=== PATIENT | male | born 1955 | race African-American/Black ===

== ENCOUNTER 2017-07-06 18:32 | Emergency (ER) | payer MEDICARE, MEDICAID ==
[~2017-07-06] VITALS: Ht 182.9 cm; Wt 137.0 kg
[~2017-07-06 18:32] MED LIST: ASPI-864 PO; ATOR20TA65 PO; GLIP10TA10 PO; LOSA100T14 PO; METF500T4 PO; NIFE60TA64 PO
[2017-07-06] MEDS ORDERED: LIDOCAINE HCL 1% 20ML VIAL (Pyxis) INJ INFIL ONE (23:30)
[2017-07-06] MEDS ORDERED: IBUPROFEN 400MG TABLET PO ONE (23:30)
[2017-07-06 23:45] VITALS: BP 117/77
== END 2017-07-07 00:23 | disposition home or self-care (01) ==
LOC: ER 18:32
DX: L02.512 Cutaneous abscess of left hand (principal); I12.9 Hypertensive chronic kidney disease with stage 1 through stage 4 chronic kidney disease, or unspecified chronic kidney disease; E11.22 Type 2 diabetes mellitus with diabetic chronic kidney disease; N18.6 End stage renal disease; F17.200 Nicotine dependence, unspecified, uncomplicated; Z99.2 Dependence on renal dialysis; Z88.0 Allergy status to penicillin; Z79.82 Long term (current) use of aspirin; Z79.84 Long term (current) use of oral hypoglycemic drugs
CPT/HCPCS: 26010; 99283; J3490

== ENCOUNTER → 2018-01-11 | Outpatient (CLI) | payer MEDICARE, MEDICAID ==
[~2018-01-11] MED LIST changes: -METF500T4 PO; +METF500T6 PO
== END | disposition home or self-care (01) ==
LOC: PVL 12:30
DX: I77.1 Stricture of artery (principal); I73.9 Peripheral vascular disease, unspecified; E11.9 Type 2 diabetes mellitus without complications
CPT/HCPCS: 93923

== ENCOUNTER 2019-07-26 04:48 | Inpatient (IN) | payer MEDICARE, MEDICAID ==
[2019-07-26] VITALS (48 sets, daily range): BP systolic 92–149; BP diastolic 41–83
[~2019-07-26] VITALS: Ht 182.9 cm; Wt 91.7 kg
[~2019-07-26 04:48] MED LIST changes: -LOSA100T14 PO; +LOSA100T32 PO; +METF-414 PO; -METF500T6 PO
[2019-07-26] MEDS ORDERED: DEXTROSE 50% WATER 50ML SYRINGE IV ONE ×3 (05:10→07:00)
[2019-07-26 06:36] LABS: HEMATOCRIT. 30.3 % (42.0-52.0); HEMOGLOBIN. 9.3 g/dL (14.0-18.0); MEAN CORPUSCULAR HEMOGLOBIN 25.1 pg (28.0-32.0); MEAN CORPUSCULAR VOLUME 82.2 fL (80.0-94.0); MEAN PLATELET VOLUME 7.4 fl (7.4-10.4); PLATELET 167 x1000/uL (130-400); RED BLOOD CELL COUNT 3.69 mill/uL (4.7-6.1); RED CELL DISTRIBUTION WIDTH 22.6 % (11.6-14.6)
[2019-07-26 06:42] LABS: CHLORIDE 96 mEq/L (98-107)
[2019-07-26 06:47] LABS: PHOSPHORUS 6.5 mg/dL (2.5-4.9)
[2019-07-26] MEDS ORDERED: SODIUM POLYSTYRENE SULFONATE 15 G/60 ML BOT PO ONE (07:00)
[2019-07-26] MEDS ORDERED: SODIUM BICARBONATE 8.4% 1 MEQ/ML 50ML SYR IV ONE (07:00)
[2019-07-26] MEDS ORDERED: ALBUTEROL (0.083%) 2.5MG/3ML NEB HHN ONE (07:00)
[2019-07-26] MEDS ORDERED: CALCIUM GLUCONATE 100MG/ML 10ML VIAL IV ONE (07:00)
[2019-07-26 07:03] LABS: NUCLEATED RED BLOOD CELLS 2 /100 WBC
[2019-07-26 07:04] LABS: PLATELET ESTIMATE NORMAL
[2019-07-26] MEDS ORDERED: ASPIRIN 325MG EC TABLET PO ONE (08:15)
[2019-07-26] MEDS ORDERED: ONDANSETRON HCL 4MG/2ML INJ IV ONE (08:45)
[2019-07-26] MEDS ORDERED: IPRATROPIUM/ALBUTEROL 0.5-3(2.5)MG/3ML NEB NEB PRN (09:30)
[2019-07-26] MEDS ORDERED: GUAIFENESIN 200MG/10ML SUGAR FREE UDC PO PRN (09:30)
[2019-07-26] MEDS ORDERED: DEXTROSE 50% WATER 50ML SYRINGE IV PRN (09:30)
[2019-07-26] MEDS ORDERED: TRAMADOL 50MG TABLET PO PRN (09:30)
[2019-07-26] MEDS ORDERED: ACETAMINOPHEN 325MG TABLET PO PRN (09:30)
[2019-07-26] MEDS ORDERED: NITROGLYCERIN 0.4MG TABLET SL SL PRN (09:30)
[2019-07-26] MEDS ORDERED: DOCUSATE SODIUM 100MG CAPSULE PO PRN (09:30)
[2019-07-26] MEDS ORDERED: MAGNESIUM/ALUMINUM HYDROXIDE/SIMETHICONE 30ML UDC PO PRN (09:30)
[2019-07-26] MEDS ORDERED: MORPHINE SULFATE 2 MG/ML CPJ (NOT FOR IM USE) IV PRN (09:30)
[2019-07-26] MEDS: BLOOD SUGAR DIAGNOSTIC STRIP TEST SCH ×3 (11:46→21:24)
[2019-07-26] MEDS: ONDANSETRON HCL 4MG/2ML INJ IV PRN (11:46)
[2019-07-26] MEDS: SEVELAMER CARBONATE 800 MG TABLET PO SCH ×2 (12:00→17:00)
[2019-07-26] MEDS: ASPIRIN 325MG EC TABLET PO SCH (12:00)
[2019-07-26] MEDS: GUAIFENESIN/DM 600MG/30MG ER TAB 12HR PO SCH ×2 (12:00→21:30)
[2019-07-26] MEDS: INSULIN LISPRO 100 UNITS/ML SUBCUT SCH ×3 (12:00→21:00)
[2019-07-26] MEDS ORDERED: FAMOTIDINE 20MG TABLET PO SCH (12:00)
[2019-07-26] MEDS: ENOXAPARIN 100MG/ML SYR SUBCUT SCH (12:07)
[2019-07-26 12:59] LABS: INR 1.5; PROTHROMBIN TIME 16.6 sec (9.6-11.0)
[2019-07-26] MEDS ORDERED: LEVOFLOXACIN 500MG PREMIX 100 ML IV NR (13:00)
[2019-07-26 13:16] LABS: CREATINE KINASE MB FRACTION 16.6 ng/mL (0.5-3.6)
[2019-07-26] MEDS ORDERED: VANCOMYCIN 2,000 MG in DEXT 5% WATER 500 ML IV NR (13:30)
[2019-07-26] MEDS ORDERED: SODIUM CHLORIDE 0.9% 1,000 ML IV SCH (13:30)
[2019-07-26] MEDS ORDERED: SODIUM CHLORIDE 0.9% 1000ML BAG (SEPSIS BOLUS) IV ONE (14:00)
[2019-07-26 15:55] LABS: HEMATOCRIT 27.9 % (42.0-52.0); MEAN CORPUSCULAR HEMOGLOBIN 25.3 pg (28.0-32.0); MEAN CORPUSCULAR VOLUME 78.4 fL (80.0-94.0); PLATELET 134 x1000/uL (130-400); RED BLOOD CELL COUNT 3.56 mill/uL (4.7-6.1)
[2019-07-26] MEDS: DIPHENHYDRAMINE 50MG/ML VIAL IV PRN (17:37)
[2019-07-26] MEDS: METOPROLOL TARTRATE 25MG TABLET PO SCH (21:00)
[2019-07-26] MEDS: DEXT 5%/LACTATED RINGERS 1,000 ML IV SCH (21:31)
[2019-07-26 23:33] LABS: HEMATOCRIT 25.6 % (42.0-52.0); HEMOGLOBIN 8.3 g/dL (14.0-18.0); MEAN CORPUSCULAR HEMOGLOBIN 25.2 pg (28.0-32.0); MEAN CORPUSCULAR VOLUME 77.9 fL (80.0-94.0); PLATELET 112 x1000/uL (130-400); RED BLOOD CELL COUNT 3.28 mill/uL (4.7-6.1); RED CELL DISTRIBUTION WIDTH 21.9 % (11.6-14.6)
[2019-07-26 23:38] LABS: CREATINE KINASE MB FRACTION 10.6 ng/mL (0.5-3.6)
[2019-07-27] VITALS (26 sets, daily range): BP systolic 100–154; BP diastolic 46–86
[2019-07-27 05:36] LABS: HEMATOCRIT. 25.8 % (42.0-52.0); HEMOGLOBIN. 8.3 g/dL (14.0-18.0); MEAN CORPUSCULAR HEMOGLOBIN 25.2 pg (28.0-32.0); MEAN PLATELET VOLUME 7.7 fl (7.4-10.4); PLATELET 125 x1000/uL (130-400); RED BLOOD CELL COUNT 3.31 mill/uL (4.7-6.1); RED CELL DISTRIBUTION WIDTH 21.4 % (11.6-14.6)
[2019-07-27 06:13] LABS: CHLORIDE 100 mEq/L (98-107)
[2019-07-27] MEDS: BLOOD SUGAR DIAGNOSTIC STRIP TEST SCH ×4 (06:14→20:41)
[2019-07-27] MEDS: INSULIN LISPRO 100 UNITS/ML SUBCUT SCH ×4 (06:14→21:00)
[2019-07-27] MEDS: SEVELAMER CARBONATE 800 MG TABLET PO SCH ×3 (06:14→18:11)
[2019-07-27 06:19] LABS: PHOSPHORUS 3.9 mg/dL (2.5-4.9)
[2019-07-27] MEDS: DEXT 5%/LACTATED RINGERS 1,000 ML IV SCH ×2 (07:24→21:22)
[2019-07-27] MEDS: ENOXAPARIN 100MG/ML SYR SUBCUT SCH (09:00)
[2019-07-27] MEDS: ASPIRIN 325MG EC TABLET PO SCH (09:00)
[2019-07-27] MEDS: PANTOPRAZOLE SODIUM 40 MG/VIAL IV SCH (09:40)
[2019-07-27] MEDS: GUAIFENESIN/DM 600MG/30MG ER TAB 12HR PO SCH ×2 (09:40→21:23)
[2019-07-27] MEDS: METOPROLOL TARTRATE 25MG TABLET PO SCH ×2 (09:41→21:23)
[2019-07-27 10:59] LABS: NUCLEATED RED BLOOD CELLS 2 /100 WBC; PLATELET ESTIMATE NORMAL
[2019-07-27 15:45] LABS: HEMATOCRIT 28.3 % (42.0-52.0); MEAN CORPUSCULAR HEMOGLOBIN 25.1 pg (28.0-32.0); MEAN CORPUSCULAR VOLUME 78.7 fL (80.0-94.0); PLATELET 127 x1000/uL (130-400); RED BLOOD CELL COUNT 3.59 mill/uL (4.7-6.1); RED CELL DISTRIBUTION WIDTH 21.7 % (11.6-14.6)
[2019-07-27 16:19] LABS: TOTAL IRON BINDING CAPACITY 295 ug/dL (250-450)
[2019-07-27 16:38] LABS: FOLIC ACID (FOLATE) SERUM 4.4 ng/mL (>5.38)
[2019-07-27] MEDS: SUCRALFATE 1 G/10 ML UDC PO SCH ×2 (18:11→21:23)
[2019-07-27] MEDS: ZOLPIDEM TARTRATE 5MG TABLET PO PRN (22:29)
[2019-07-27 22:56] LABS: HEMATOCRIT 29.5 % (42.0-52.0); HEMOGLOBIN 9.4 g/dL (14.0-18.0); MEAN CORPUSCULAR HEMOGLOBIN 25.1 pg (28.0-32.0); MEAN CORPUSCULAR VOLUME 78.8 fL (80.0-94.0); PLATELET 126 x1000/uL (130-400); RED BLOOD CELL COUNT 3.74 mill/uL (4.7-6.1); RED CELL DISTRIBUTION WIDTH 22.1 % (11.6-14.6)
[2019-07-28] VITALS (21 sets, daily range): BP systolic 94–177; BP diastolic 57–110
[2019-07-28 05:33] LABS: BASOPHILS % 0.4 % (0.0-2.0); EOSINOPHILS % 0.6 % (0.0-5.0); HEMOGLOBIN. 8.9 g/dL (14.0-18.0); LYMPHOCYTES % 8.8 % (20.0-50.0); MEAN CORPUSCULAR HEMOGLOBIN 25.1 pg (28.0-32.0); MEAN CORPUSCULAR VOLUME 78.6 fL (80.0-94.0); MEAN PLATELET VOLUME 8.5 fl (7.4-10.4); NEUTROPHILS % 84.2 % (40.0-76.0); PLATELET 119 x1000/uL (130-400); RED BLOOD CELL COUNT 3.56 mill/uL (4.7-6.1)
[2019-07-28] MEDS: INSULIN LISPRO 100 UNITS/ML SUBCUT SCH ×4 (06:30→20:36)
[2019-07-28] MEDS: SUCRALFATE 1 G/10 ML UDC PO SCH ×4 (06:30→20:40)
[2019-07-28] MEDS: BLOOD SUGAR DIAGNOSTIC STRIP TEST SCH ×4 (06:30→20:36)
[2019-07-28] MEDS: SEVELAMER CARBONATE 800 MG TABLET PO SCH ×3 (06:31→16:20)
[2019-07-28 07:37] LABS: PLATELET ESTIMATE DECREASED
[2019-07-28] MEDS: GUAIFENESIN/DM 600MG/30MG ER TAB 12HR PO SCH ×2 (09:00→20:34)
[2019-07-28] MEDS ORDERED: ASPIRIN 325MG EC TABLET PO SCH (09:00)
[2019-07-28] MEDS: METOPROLOL TARTRATE 25MG TABLET PO SCH ×2 (09:00→20:35)
[2019-07-28] MEDS ORDERED: ASPIRIN 81MG EC TABLET PO SCH (09:00)
[2019-07-28] MEDS: PANTOPRAZOLE SODIUM 40 MG/VIAL IV SCH (09:20)
[2019-07-28] MEDS: DEXT 5%/LACTATED RINGERS 1,000 ML IV SCH ×3 (09:21→20:36)
[2019-07-28] MEDS: NICOTINE 21MG PATCH TD SCH (09:21)
[2019-07-28] MEDS ORDERED: VANCOMYCIN 750 MG PREMIX 150 ML IV SCH (12:00)
[2019-07-28] MEDS: LEVOFLOXACIN 250MG PREMIX 50 ML IV SCH (12:15)
[2019-07-28 17:48] LABS: HEMOGLOBIN 9.8 g/dL (14.0-18.0); MEAN CORPUSCULAR VOLUME 79.2 fL (80.0-94.0); PLATELET 125 x1000/uL (130-400); RED BLOOD CELL COUNT 3.92 mill/uL (4.7-6.1)
[2019-07-29] VITALS (13 sets, daily range): BP systolic 114–168; BP diastolic 57–96
[2019-07-29] MEDS: ZOLPIDEM TARTRATE 5MG TABLET PO PRN ×2 (01:27→23:22)
[2019-07-29] MEDS: SUCRALFATE 1 G/10 ML UDC PO SCH ×4 (07:30→20:17)
[2019-07-29] MEDS: SEVELAMER CARBONATE 800 MG TABLET PO SCH ×3 (08:00→18:05)
[2019-07-29] MEDS: INSULIN LISPRO 100 UNITS/ML SUBCUT SCH ×4 (08:00→20:18)
[2019-07-29] MEDS: BLOOD SUGAR DIAGNOSTIC STRIP TEST SCH ×4 (08:22→20:21)
[2019-07-29] MEDS: METOPROLOL TARTRATE 25MG TABLET PO SCH ×2 (08:23→20:17)
[2019-07-29] MEDS: GUAIFENESIN/DM 600MG/30MG ER TAB 12HR PO SCH ×2 (09:00→20:17)
[2019-07-29] MEDS ORDERED: BACTERIOSTATIC SODIUM CHLORIDE 0.9% 30ML VIAL IJ ONE (09:29)
[2019-07-29 09:52] LABS: HEMATOCRIT. 30.9 % (42.0-52.0); HEMOGLOBIN. 9.8 g/dL (14.0-18.0); MEAN CORPUSCULAR VOLUME 79.1 fL (80.0-94.0); RED CELL DISTRIBUTION WIDTH 21.8 % (11.6-14.6)
[2019-07-29] MEDS: PANTOPRAZOLE SODIUM 40 MG/VIAL IV SCH (09:54)
[2019-07-29] MEDS: NICOTINE 21MG PATCH TD SCH (09:54)
[2019-07-29] MEDS: DEXT 5%/0.9% NACL 1,000 ML IV SCH (09:54)
[2019-07-29 10:02] LABS: INR 1.2; PARTIAL THROMBOPLASTIN TIME 28.7 sec (23.4-31.0); PROTHROMBIN TIME 13.3 sec (9.6-11.0)
[2019-07-29 10:47] LABS: PLATELET 120 x1000/uL (130-400)
[2019-07-29 11:28] LABS: NUCLEATED RED BLOOD CELLS 5 /100 WBC; PLATELET ESTIMATE SLIGHTLY DECREASED
[2019-07-29 11:57] LABS: CHLORIDE 95 mEq/L (98-107)
[2019-07-29] MEDS ORDERED: HYDRALAZINE 20MG/ML VIAL IV PRN (14:55)
[2019-07-29 15:18] LABS: HEMATOCRIT 33.3 % (42.0-52.0); HEMOGLOBIN 10.4 g/dL (14.0-18.0); MEAN CORPUSCULAR HEMOGLOBIN 25.2 pg (28.0-32.0); MEAN CORPUSCULAR VOLUME 81.1 fL (80.0-94.0); PLATELET 121 x1000/uL (130-400); RED CELL DISTRIBUTION WIDTH 22.3 % (11.6-14.6)
[2019-07-29] MEDS ORDERED: MIDAZOLAM HCL 5 MG/5 ML VIAL ONE (15:43)
[2019-07-29] MEDS ORDERED: FENTANYL CITRATE/PF 50MCG/ML 2ML VIAL ONE (15:44)
[2019-07-29] MEDS ORDERED: MIDAZOLAM HCL 5 MG/5 ML VIAL IV PRN (16:10)
[2019-07-29] MEDS ORDERED: FENTANYL CITRATE/PF 50MCG/ML 2ML VIAL IV PRN (16:11)
[2019-07-29] MEDS ORDERED: EPOETIN ALFA 10000UNITS/ML VIAL SUBCUT SCH (21:00)
[2019-07-30] VITALS (10 sets, daily range): BP systolic 116–154; BP diastolic 56–88
[2019-07-30 01:24] LABS: HEMATOCRIT 31.2 % (42.0-52.0); MEAN CORPUSCULAR HEMOGLOBIN 25.7 pg (28.0-32.0); MEAN CORPUSCULAR VOLUME 79.9 fL (80.0-94.0); PLATELET 131 x1000/uL (130-400); RED CELL DISTRIBUTION WIDTH 22.3 % (11.6-14.6)
[2019-07-30 02:53] LABS: HEPATITIS B SURFACE ANTIGEN NEGATIVE
[2019-07-30 03:22] LABS: HEPATITIS A AB IGM NEGATIVE (NEGATIVE)
[2019-07-30 06:58] LABS: HEMATOCRIT 29.9 % (42.0-52.0); HEMOGLOBIN 9.8 g/dL (14.0-18.0); MEAN CORPUSCULAR VOLUME 79.6 fL (80.0-94.0); PLATELET 122 x1000/uL (130-400); RED BLOOD CELL COUNT 3.76 mill/uL (4.7-6.1); RED CELL DISTRIBUTION WIDTH 21.9 % (11.6-14.6)
[2019-07-30] MEDS: BLOOD SUGAR DIAGNOSTIC STRIP TEST SCH ×4 (07:55→20:03)
[2019-07-30] MEDS: INSULIN LISPRO 100 UNITS/ML SUBCUT SCH ×4 (07:56→20:02)
[2019-07-30] MEDS ORDERED: IOHEXOL-300 100 ML BOTTLE ONE (09:33)
[2019-07-30] MEDS: GUAIFENESIN/DM 600MG/30MG ER TAB 12HR PO SCH ×2 (10:16→20:00)
[2019-07-30] MEDS: NICOTINE 21MG PATCH TD SCH (10:16)
[2019-07-30] MEDS: METOPROLOL TARTRATE 25MG TABLET PO SCH ×2 (10:16→20:00)
[2019-07-30] MEDS: SUCRALFATE 1 G/10 ML UDC PO SCH ×4 (10:16→20:00)
[2019-07-30] MEDS: SEVELAMER CARBONATE 800 MG TABLET PO SCH ×3 (10:16→17:22)
[2019-07-30] MEDS: LEVOFLOXACIN 250MG PREMIX 50 ML IV SCH (11:59)
[2019-07-30] MEDS: PANTOPRAZOLE SODIUM 40 MG/VIAL IV SCH (12:00)
[2019-07-30] MEDS ORDERED: VANCOMYCIN 750 MG PREMIX 150 ML IV NR (16:00)
[2019-07-30 18:01] LABS: HEMATOCRIT 24.2 % (42.0-52.0); MEAN CORPUSCULAR HEMOGLOBIN 25.4 pg (28.0-32.0); PLATELET 91 x1000/uL (130-400); RED BLOOD CELL COUNT 2.72 mill/uL (4.7-6.1); RED CELL DISTRIBUTION WIDTH 23.7 % (11.6-14.6)
[2019-07-30 18:15] LABS: HEMOGLOBIN 6.9 g/dL (14.0-18.0)
[2019-07-30] MEDS: ZOLPIDEM TARTRATE 5MG TABLET PO PRN (20:00)
[2019-07-30 20:33] LABS: CHLORIDE 96 mEq/L (98-107)
[2019-07-30 20:46] LABS: HEMOGLOBIN 9.5 g/dL (14.0-18.0)
[2019-07-30 20:49] LABS: HEMATOCRIT 29.5 % (42.0-52.0)
[2019-07-31] VITALS (10 sets, daily range): BP systolic 127–154; BP diastolic 67–85
[2019-07-31 00:04] LABS: HEMATOCRIT 33.5 % (42.0-52.0); HEMOGLOBIN 10.7 g/dL (14.0-18.0); PLATELET 115 x1000/uL (130-400); RED BLOOD CELL COUNT 4.13 mill/uL (4.7-6.1); RED CELL DISTRIBUTION WIDTH 23.2 % (11.6-14.6)
[2019-07-31] MEDS: DEXT 5%/0.9% NACL 1,000 ML IV SCH (00:05)
[2019-07-31] MEDS: BLOOD SUGAR DIAGNOSTIC STRIP TEST SCH ×4 (07:54→21:22)
[2019-07-31] MEDS: SEVELAMER CARBONATE 800 MG TABLET PO SCH ×3 (08:01→18:23)
[2019-07-31] MEDS: SUCRALFATE 1 G/10 ML UDC PO SCH ×4 (08:01→21:22)
[2019-07-31] MEDS: INSULIN LISPRO 100 UNITS/ML SUBCUT SCH ×4 (08:02→21:00)
[2019-07-31] MEDS: METOPROLOL TARTRATE 25MG TABLET PO SCH ×2 (08:28→21:22)
[2019-07-31] MEDS: PANTOPRAZOLE SODIUM 40 MG/VIAL IV SCH (09:00)
[2019-07-31] MEDS: GUAIFENESIN/DM 600MG/30MG ER TAB 12HR PO SCH ×2 (12:09→21:22)
[2019-07-31] MEDS: NICOTINE 21MG PATCH TD SCH (12:09)
[2019-08-01] VITALS (13 sets, daily range): BP systolic 130–196; BP diastolic 62–100
[2019-08-01] MEDS: DIPHENHYDRAMINE 50MG/ML VIAL IV PRN (02:11)
[2019-08-01] MEDS: SUCRALFATE 1 G/10 ML UDC PO SCH ×4 (06:33→20:33)
[2019-08-01 07:22] LABS: HEMATOCRIT. 27.3 % (42.0-52.0); HEMOGLOBIN. 8.9 g/dL (14.0-18.0); MEAN CORPUSCULAR VOLUME 79.6 fL (80.0-94.0); MEAN PLATELET VOLUME 8.7 fl (7.4-10.4); PLATELET 109 x1000/uL (130-400); RED BLOOD CELL COUNT 3.43 mill/uL (4.7-6.1); RED CELL DISTRIBUTION WIDTH 24.5 % (11.6-14.6)
[2019-08-01 07:45] LABS: CHLORIDE 102 mEq/L (98-107)
[2019-08-01] MEDS: INSULIN LISPRO 100 UNITS/ML SUBCUT SCH ×4 (08:00→20:50)
[2019-08-01] MEDS: SEVELAMER CARBONATE 800 MG TABLET PO SCH ×3 (08:00→16:50)
[2019-08-01] MEDS: METOPROLOL TARTRATE 25MG TABLET PO SCH ×2 (08:28→20:36)
[2019-08-01] MEDS: GUAIFENESIN/DM 600MG/30MG ER TAB 12HR PO SCH ×2 (08:28→20:49)
[2019-08-01] MEDS: BLOOD SUGAR DIAGNOSTIC STRIP TEST SCH ×4 (08:29→20:50)
[2019-08-01] MEDS: NICOTINE 21MG PATCH TD SCH (08:51)
[2019-08-01] MEDS: PANTOPRAZOLE SODIUM 40 MG/VIAL IV SCH (08:51)
[2019-08-01] MEDS: DEXT 5%/0.9% NACL 1,000 ML IV SCH (08:57)
[2019-08-01 10:06] LABS: PLATELET ESTIMATE DECREASED
[2019-08-01] MEDS ORDERED: PHENYLEPHRINE 100MCG/ML 10ML VIAL (CATH LAB) IV ONE (10:53)
[2019-08-01] MEDS ORDERED: HEPARIN SODIUM 1,000 UNIT/1ML VIAL IV ONE (10:53)
[2019-08-01] MEDS ORDERED: NITROGLYCERIN 50MCG/ML 10ML VIAL (CATH LAB) IV ONE (10:53)
[2019-08-01] MEDS ORDERED: NICARDIPINE 100MCG/ML 10ML VIAL (CATH LAB) IV ONE (10:53)
[2019-08-01] MEDS ORDERED: LEVOFLOXACIN 250MG TABLET PO SCH (11:00)
[2019-08-01] MEDS ORDERED: LIDOCAINE HCL 1% 20ML VIAL (Pyxis) INJ ONE (11:29)
[2019-08-01] MEDS ORDERED: IODIXANOL 320MG/ML 100 ML BOTTLE IV ONE (11:30)
[2019-08-01] MEDS ORDERED: ASPIRIN/SOD BICARB/CITRIC ACID 324MG TAB EFF ONE (11:30)
[2019-08-01] MEDS ORDERED: MIDAZOLAM HCL 2 MG/2 ML VIAL ONE (11:44)
[2019-08-01] MEDS ORDERED: FENTANYL CITRATE/PF 50MCG/ML 2ML VIAL ONE (11:44)
[2019-08-01] MEDS ORDERED: IOHEXOL-300 100 ML BOTTLE ONE (12:35)
[2019-08-01] MEDS ORDERED: CLOPIDOGREL 75MG TABLET ONE (12:40)
[2019-08-01] MEDS ORDERED: CLOPIDOGREL 75MG TABLET PO NR (12:45)
[2019-08-01] MEDS ORDERED: ATROPINE SULFATE 1MG/10ML SYR IV PRN (12:45)
[2019-08-01] MEDS ORDERED: ACETAMINOPHEN 325MG TABLET PO PRN (12:45)
[2019-08-01] MEDS ORDERED: VANCOMYCIN 500 MG PREMIX 100 ML IV NR (17:00)
[2019-08-01] MEDS: CLONIDINE 0.1MG TABLET PO PRN (18:04)
[2019-08-01] MEDS ORDERED: EPOETIN ALFA 10000UNITS/ML VIAL SUBCUT SCH (21:00)
[2019-08-01] MEDS ORDERED: TRAMADOL HCL/ACETAMINOPHEN 37.5/325MG TABLET PO PRN (21:30)
[2019-08-01] MEDS ORDERED: ZOLPIDEM TARTRATE 5MG TABLET PO PRN (21:30)
[2019-08-02] VITALS (16 sets, daily range): BP systolic 94–189; BP diastolic 52–92
[2019-08-02] MEDS: BLOOD SUGAR DIAGNOSTIC STRIP TEST SCH ×4 (05:48→20:10)
[2019-08-02] MEDS: SUCRALFATE 1 G/10 ML UDC PO SCH ×4 (05:48→20:28)
[2019-08-02] MEDS: INSULIN LISPRO 100 UNITS/ML SUBCUT SCH ×4 (07:20→20:16)
[2019-08-02] MEDS: PANTOPRAZOLE SODIUM 40 MG/VIAL IV SCH (09:00)
[2019-08-02] MEDS: DEXT 5%/0.9% NACL 1,000 ML IV SCH (09:15)
[2019-08-02 09:44] LABS: HEMOGLOBIN. 9.6 g/dL (14.0-18.0); MEAN CORPUSCULAR VOLUME 78.7 fL (80.0-94.0); MEAN PLATELET VOLUME 8.8 fl (7.4-10.4); PLATELET 141 x1000/uL (130-400); RED BLOOD CELL COUNT 3.68 mill/uL (4.7-6.1); RED CELL DISTRIBUTION WIDTH 24.3 % (11.6-14.6)
[2019-08-02] MEDS: CLOPIDOGREL 75MG TABLET PO SCH (10:25)
[2019-08-02] MEDS: ASPIRIN 81MG TABLET PO SCH (10:25)
[2019-08-02] MEDS: GUAIFENESIN/DM 600MG/30MG ER TAB 12HR PO SCH ×2 (10:25→20:29)
[2019-08-02] MEDS: METOPROLOL TARTRATE 25MG TABLET PO SCH ×2 (10:26→20:29)
[2019-08-02] MEDS: NICOTINE 21MG PATCH TD SCH (10:30)
[2019-08-02] MEDS: SEVELAMER CARBONATE 800 MG TABLET PO SCH ×3 (10:46→17:53)
[2019-08-02] MEDS: CLONIDINE 0.1MG TABLET PO PRN (10:54)
[2019-08-02 11:40] LABS: PLATELET ESTIMATE NORMAL
[2019-08-02] MEDS: FAMOTIDINE 20MG TABLET PO SCH (16:08)
[2019-08-03] VITALS (13 sets, daily range): BP systolic 129–188; BP diastolic 52–121
[2019-08-03] MEDS: CLONIDINE 0.1MG TABLET PO PRN ×2 (05:18→15:37)
[2019-08-03] MEDS: SUCRALFATE 1 G/10 ML UDC PO SCH ×4 (06:20→21:03)
[2019-08-03] MEDS: BLOOD SUGAR DIAGNOSTIC STRIP TEST SCH ×4 (06:22→21:00)
[2019-08-03] MEDS: INSULIN LISPRO 100 UNITS/ML SUBCUT SCH ×4 (07:20→21:00)
[2019-08-03] MEDS: CLOPIDOGREL 75MG TABLET PO SCH (08:17)
[2019-08-03] MEDS: ASPIRIN 81MG TABLET PO SCH (08:17)
[2019-08-03] MEDS: METOPROLOL TARTRATE 25MG TABLET PO SCH ×2 (08:17→21:07)
[2019-08-03] MEDS: GUAIFENESIN/DM 600MG/30MG ER TAB 12HR PO SCH ×2 (08:17→21:04)
[2019-08-03] MEDS: SEVELAMER CARBONATE 800 MG TABLET PO SCH ×3 (08:17→17:41)
[2019-08-03] MEDS: FAMOTIDINE 20MG TABLET PO SCH (08:17)
[2019-08-03] MEDS: NICOTINE 21MG PATCH TD SCH (08:19)
[2019-08-03] MEDS: DEXT 5%/0.9% NACL 1,000 ML IV SCH (08:34)
[2019-08-04] VITALS (12 sets, daily range): BP systolic 111–146; BP diastolic 56–99
[2019-08-04] MEDS: BLOOD SUGAR DIAGNOSTIC STRIP TEST SCH ×4 (05:51→20:41)
[2019-08-04] MEDS: SUCRALFATE 1 G/10 ML UDC PO SCH ×4 (06:01→20:40)
[2019-08-04 06:45] LABS: HEMATOCRIT. 32.6 % (42.0-52.0); HEMOGLOBIN. 10.3 g/dL (14.0-18.0); MEAN CORPUSCULAR HEMOGLOBIN 25.6 pg (28.0-32.0); MEAN CORPUSCULAR VOLUME 81.3 fL (80.0-94.0); MEAN PLATELET VOLUME 9.7 fl (7.4-10.4); PLATELET 152 x1000/uL (130-400); RED BLOOD CELL COUNT 4.01 mill/uL (4.7-6.1); RED CELL DISTRIBUTION WIDTH 24.7 % (11.6-14.6)
[2019-08-04] MEDS: INSULIN LISPRO 100 UNITS/ML SUBCUT SCH ×4 (07:20→21:41)
[2019-08-04] MEDS: NICOTINE 21MG PATCH TD SCH (08:55)
[2019-08-04] MEDS: SEVELAMER CARBONATE 800 MG TABLET PO SCH ×3 (08:55→16:24)
[2019-08-04] MEDS: ASPIRIN 81MG TABLET PO SCH (08:56)
[2019-08-04] MEDS: CLOPIDOGREL 75MG TABLET PO SCH (08:56)
[2019-08-04] MEDS: GUAIFENESIN/DM 600MG/30MG ER TAB 12HR PO SCH ×2 (08:56→20:41)
[2019-08-04] MEDS: FAMOTIDINE 20MG TABLET PO SCH (08:56)
[2019-08-04] MEDS: METOPROLOL TARTRATE 25MG TABLET PO SCH ×2 (08:56→20:41)
[2019-08-04] MEDS: DEXT 5%/0.9% NACL 1,000 ML IV SCH (08:57)
[2019-08-04] MEDS ORDERED: ASPIRIN/SOD BICARB/CITRIC ACID 324MG TAB EFF ONE (13:59)
[2019-08-04] MEDS ORDERED: FENTANYL CITRATE/PF 50MCG/ML 2ML VIAL ONE (14:07)
[2019-08-04] MEDS ORDERED: LIDOCAINE HCL 1% 20ML VIAL (Pyxis) INJ ONE (14:07)
[2019-08-04] MEDS ORDERED: MIDAZOLAM HCL 2 MG/2 ML VIAL ONE (14:07)
[2019-08-04] MEDS ORDERED: IODIXANOL 320MG/ML 100 ML BOTTLE IV ONE ×2 (14:08→15:33)
[2019-08-04] MEDS ORDERED: IOHEXOL-300 100 ML BOTTLE ONE (14:33)
[2019-08-04 14:48] LABS: PLATELET ESTIMATE NORMAL
[2019-08-04] MEDS ORDERED: CLOPIDOGREL 75MG TABLET ONE (15:33)
[2019-08-04] MEDS ORDERED: NICARDIPINE 100MCG/ML 10ML VIAL (CATH LAB) IV ONE (15:39)
[2019-08-04] MEDS ORDERED: HEPARIN SODIUM 1,000 UNIT/1ML VIAL IV ONE (15:39)
[2019-08-04] MEDS ORDERED: NITROGLYCERIN 50MCG/ML 10ML VIAL (CATH LAB) IV ONE (15:39)
[2019-08-04] MEDS ORDERED: ATROPINE SULFATE 1MG/10ML SYR IV PRN (15:45)
[2019-08-04] MEDS ORDERED: ACETAMINOPHEN 325MG TABLET PO PRN (15:45)
[2019-08-05] VITALS (12 sets, daily range): BP systolic 117–175; BP diastolic 57–94
[2019-08-05] MEDS: SUCRALFATE 1 G/10 ML UDC PO SCH ×4 (06:41→21:16)
[2019-08-05] MEDS: BLOOD SUGAR DIAGNOSTIC STRIP TEST SCH ×4 (06:41→21:17)
[2019-08-05] MEDS: INSULIN LISPRO 100 UNITS/ML SUBCUT SCH ×4 (07:20→21:00)
[2019-08-05] MEDS: FAMOTIDINE 20MG TABLET PO SCH (08:20)
[2019-08-05] MEDS: ASPIRIN 81MG TABLET PO SCH (08:20)
[2019-08-05] MEDS: GUAIFENESIN/DM 600MG/30MG ER TAB 12HR PO SCH ×2 (08:20→21:16)
[2019-08-05] MEDS: CLOPIDOGREL 75MG TABLET PO SCH (08:20)
[2019-08-05] MEDS: SEVELAMER CARBONATE 800 MG TABLET PO SCH ×3 (08:20→17:36)
[2019-08-05] MEDS: NICOTINE 21MG PATCH TD SCH (08:21)
[2019-08-05] MEDS: DEXT 5%/0.9% NACL 1,000 ML IV SCH (08:21)
[2019-08-05] MEDS: METOPROLOL TARTRATE 25MG TABLET PO SCH ×2 (08:21→21:16)
[2019-08-05 10:28] LABS: INR 1.1; PARTIAL THROMBOPLASTIN TIME 25.2 sec (23.4-31.0); PROTHROMBIN TIME 12.3 sec (9.6-11.0)
[2019-08-05] MEDS: ONDANSETRON HCL 4MG/2ML INJ IV PRN (10:30)
[2019-08-05 15:55] LABS: HEMOGLOBIN. 9.5 g/dL (14.0-18.0); MEAN CORPUSCULAR HEMOGLOBIN 26.8 pg (28.0-32.0); MEAN CORPUSCULAR VOLUME 79.3 fL (80.0-94.0); MEAN PLATELET VOLUME 9.6 fl (7.4-10.4); PLATELET 172 x1000/uL (130-400); RED BLOOD CELL COUNT 3.53 mill/uL (4.7-6.1); RED CELL DISTRIBUTION WIDTH 23.7 % (11.6-14.6)
[2019-08-05 17:34] LABS: PLATELET ESTIMATE NORMAL
[2019-08-06] VITALS (9 sets, daily range): BP systolic 118–156; BP diastolic 57–91
[2019-08-06] MEDS: SUCRALFATE 1 G/10 ML UDC PO SCH ×2 (06:27→13:14)
[2019-08-06] MEDS: BLOOD SUGAR DIAGNOSTIC STRIP TEST SCH ×2 (06:28→11:50)
[2019-08-06] MEDS: INSULIN LISPRO 100 UNITS/ML SUBCUT SCH ×2 (07:20→12:20)
[2019-08-06] MEDS: SEVELAMER CARBONATE 800 MG TABLET PO SCH ×2 (09:36→13:14)
[2019-08-06] MEDS: GUAIFENESIN/DM 600MG/30MG ER TAB 12HR PO SCH (09:36)
[2019-08-06] MEDS: CLOPIDOGREL 75MG TABLET PO SCH (09:36)
[2019-08-06] MEDS: DEXT 5%/0.9% NACL 1,000 ML IV SCH (09:41)
[2019-08-06] MEDS: NICOTINE 21MG PATCH TD SCH (09:41)
[2019-08-06] MEDS: METOPROLOL TARTRATE 25MG TABLET PO SCH (09:41)
[2019-08-06] MEDS: FAMOTIDINE 20MG TABLET PO SCH (09:41)
[2019-08-06] MEDS: ASPIRIN 81MG TABLET PO SCH (09:42)
[2019-08-06] MEDS ORDERED: METO25TA6 MT (14:39)
[2019-08-06] MEDS ORDERED: FAMO40TA7 MT (14:40)
[2019-08-06] MEDS ORDERED: CLOP75TA33 MT (14:42)
== END 2019-08-06 16:10 | disposition home health service (06) | DRG 853 ==
LOC: ER 04:56 → EDBEDREQ 07:42 → MICUSO 08:07 → EDBEDREQ 08:09 → SUPCPDRO 09:18 → ENRESERV 09:38 → 5EST 07-28 23:20 → 3WST 08-01 12:57
PROVIDERS: ADMIT Internal Medicine; ATTEND Internal Medicine
PROC: 5A1D70Z Performance of Urinary Filtration, Intermittent, Less than 6 Hours Per Day (ICD-10-PCS; 2019-07-26)
PROC: 5A2204Z Restoration of Cardiac Rhythm, Single (ICD-10-PCS; 2019-07-26)
PROC: 0DB68ZX Excision of Stomach, Via Natural or Artificial Opening Endoscopic, Diagnostic (ICD-10-PCS; 2019-07-29)
PROC: 5A1D70Z Performance of Urinary Filtration, Intermittent, Less than 6 Hours Per Day (ICD-10-PCS; 2019-07-29)
PROC: 5A1D70Z Performance of Urinary Filtration, Intermittent, Less than 6 Hours Per Day (ICD-10-PCS; 2019-07-31)
PROC: 4A023N7 Measurement of Cardiac Sampling and Pressure, Left Heart, Percutaneous Approach (ICD-10-PCS; principal; 2019-08-01)
PROC: B2111ZZ Fluoroscopy of Multiple Coronary Arteries using Low Osmolar Contrast (ICD-10-PCS; 2019-08-01)
PROC: B2151ZZ Fluoroscopy of Left Heart using Low Osmolar Contrast (ICD-10-PCS; 2019-08-01)
PROC: 5A1D70Z Performance of Urinary Filtration, Intermittent, Less than 6 Hours Per Day (ICD-10-PCS; 2019-08-02)
PROC: 027136Z Dilation of Coronary Artery, Two Arteries with Three Drug-eluting Intraluminal Devices, Percutaneous Approach (ICD-10-PCS; 2019-08-04)
PROC: 5A1D70Z Performance of Urinary Filtration, Intermittent, Less than 6 Hours Per Day (ICD-10-PCS; 2019-08-05)
PROC: 5A1D70Z Performance of Urinary Filtration, Intermittent, Less than 6 Hours Per Day (ICD-10-PCS; 2019-08-06)
DX: A41.9 Sepsis, unspecified organism (principal); J96.00 Acute respiratory failure, unspecified whether with hypoxia or hypercapnia; N18.6 End stage renal disease; I21.4 Non-ST elevation (NSTEMI) myocardial infarction; K22.6 Gastro-esophageal laceration-hemorrhage syndrome; K29.71 Gastritis, unspecified, with bleeding; E44.0 Moderate protein-calorie malnutrition; I50.40 Unspecified combined systolic (congestive) and diastolic (congestive) heart failure; E87.2 Acidosis; I47.1 Supraventricular tachycardia; I42.9 Cardiomyopathy, unspecified; K22.10 Ulcer of esophagus without bleeding; I47.2 Ventricular tachycardia; I13.2 Hypertensive heart and chronic kidney disease with heart failure and with stage 5 chronic kidney disease, or end stage renal disease; E11.22 Type 2 diabetes mellitus with diabetic chronic kidney disease; E87.5 Hyperkalemia; E83.39 Other disorders of phosphorus metabolism; K29.80 Duodenitis without bleeding; D50.9 Iron deficiency anemia, unspecified; I25.10 Atherosclerotic heart disease of native coronary artery without angina pectoris; F17.210 Nicotine dependence, cigarettes, uncomplicated; E11.649 Type 2 diabetes mellitus with hypoglycemia without coma; E78.00 Pure hypercholesterolemia, unspecified; R74.0 Nonspecific elevation of levels of transaminase and lactic acid dehydrogenase [LDH]; E11.51 Type 2 diabetes mellitus with diabetic peripheral angiopathy without gangrene; K44.9 Diaphragmatic hernia without obstruction or gangrene; D63.8 Anemia in other chronic diseases classified elsewhere; E78.5 Hyperlipidemia, unspecified; J44.9 Chronic obstructive pulmonary disease, unspecified; Z60.2 Problems related to living alone; E11.319 Type 2 diabetes mellitus with unspecified diabetic retinopathy without macular edema; K21.9 Gastro-esophageal reflux disease without esophagitis; Z99.2 Dependence on renal dialysis; Z88.0 Allergy status to penicillin; Z79.82 Long term (current) use of aspirin; Z79.899 Other long term (current) drug therapy; Z79.811 Long term (current) use of aromatase inhibitors; Z79.02 Long term (current) use of antithrombotics/antiplatelets; Z79.84 Long term (current) use of oral hypoglycemic drugs; Z79.4 Long term (current) use of insulin; Z87.19 Personal history of other diseases of the digestive system; Z68.27 Body mass index [BMI] 27.0-27.9, adult
CPT/HCPCS: 36415; 71045; 74178; 76700; 80048; 80053; 80061; 80076; 80202; 82105; 82140; 82248; 82270; 82378; 82550; 82553; 82607; 82728; 82746; 82962; 83036; 83540; 83550; 83605; 83735; 83880; 84100; 84145; 84207; 84443; 84450; 84460; 84484; 85014; 85018; 85025; 85027; 85347; 86301; 86677; 86705; 86709; 86803; 87340; 88305; 88312; 88313; 92928; 92929; 93005; 93306; 93454; 93458; 93970; 94644; 96365; 97162; 97165; 99291; C1725; C1769; C1874; C1887; C1893; C9113; J0360; J0610; J0885; J1200; J1644; J1815; J1956; J2250; J2370; J2405; J3010; J3370; J3490; J7042; J7060; J7121; Q9967

== ENCOUNTER 2019-09-02 05:10 | Inpatient (IN) | payer MEDICARE, MEDICAID ==
[~2019-09-02] VITALS: Ht 182.9 cm; Wt 90.3 kg
[2019-09-02] VITALS (7 sets, daily range): BP systolic 93–125; BP diastolic 14–78
[~2019-09-02 05:10] MED LIST changes: +CLOP75TA33 MT; +FAMO40TA7 MT; -METF-414 PO; +METO25TA6 MT
[2019-09-02] MEDS ORDERED: SODIUM CHLORIDE 0.9% 1,000 ML IV ONE (05:38)
[2019-09-02] MEDS ORDERED: ASPIRIN 81MG TABLET PO ONE (05:45)
[2019-09-02 05:57] LABS: HEMATOCRIT. 39.9 % (42.0-52.0); HEMOGLOBIN. 12.7 g/dL (14.0-18.0); MEAN CORPUSCULAR HEMOGLOBIN 25.5 pg (28.0-32.0); MEAN CORPUSCULAR VOLUME 80.3 fL (80.0-94.0); MEAN PLATELET VOLUME 8.1 fl (7.4-10.4); PLATELET 154 x1000/uL (130-400); RED BLOOD CELL COUNT 4.97 mill/uL (4.7-6.1); RED CELL DISTRIBUTION WIDTH 23.2 % (11.6-14.6)
[2019-09-02 06:00] LABS: CHLORIDE 100 mEq/L (98-107)
[2019-09-02 06:02] LABS: PARTIAL THROMBOPLASTIN TIME 26.8 sec (23.4-31.0); PROTHROMBIN TIME 10.7 sec (9.6-11.0)
[2019-09-02] MEDS ORDERED: DEXTROSE 50% WATER 50ML SYRINGE IV ONE ×3 (06:21→09:15)
[2019-09-02] MEDS ORDERED: DILTIAZEM HCL 5MG/ML 5ML VIAL IV ONE ×2 (06:30→07:15)
[2019-09-02 06:43] LABS: PLATELET ESTIMATE NORMAL
[2019-09-02] MEDS ORDERED: DILTIAZEM HCL 180MG CAPSULE CD 24HR PO ONE (07:00)
[2019-09-02] MEDS ORDERED: VANCOMYCIN 1 G PREMIX 200 ML IV ONE (07:30)
[2019-09-02] MEDS ORDERED: AZITHROMYCIN 500 MG in DEXT 5% WATER 250 ML IV ONE (07:30)
[2019-09-02] MEDS ORDERED: DILTIAZEM HCL 125 MG in DEXT 5% WATER 100 ML IV ONE ×2 (09:00→09:15)
[2019-09-02] MEDS ORDERED: DEXT 5% WATER 500 ML IV ONE (09:15)
[2019-09-02] MEDS ORDERED: VANCOMYCIN 1,000 MG in DEXT 5% WATER 250 ML IV NR (09:45)
[2019-09-02] MEDS: CLOPIDOGREL 75MG TABLET PO SCH (13:48)
[2019-09-02] MEDS: ASPIRIN 81MG TABLET PO SCH (13:48)
[2019-09-02] MEDS: DILTIAZEM HCL 60MG TABLET PO SCH ×2 (13:49→22:00)
[2019-09-02] MEDS: ENOXAPARIN 100MG/ML SYR SUBCUT SCH (13:51)
[2019-09-02 15:04] LABS: BG BASE EXCESS -0.2 mmol/L (-2.0-2.0); BG CARBOXYHEMOGLOBIN 1.8 % (0.5-1.5); BG DEOXYHEMOGLOBIN 4.2 % (0.0-5.0); BG FRACTION INSPIRED OXYGEN 34; BG HCO3 ACT 24.9 mmol/L (22.0-26.0); BG METHEMOGLOBIN 0.2 % (0.0-1.5); BG OXYGEN SATURATION 95.7 % (92.0-98.5); BG OXYHEMOGLOBIN 93.8 % (94.0-97.0); BG PCO2 42.2 mmHg (35.0-45.0); BG PH 7.388 (7.350-7.450); BG PO2 81.9 mmHg (75.0-100.0); BG SAMPLE SITE RIGHT RADIAL; BG TOTAL HEMOGLOBIN 11.7 g/dL (12.0-18.0); BG VENT MODE NASAL CANNULA
[2019-09-02] MEDS ORDERED: DILTIAZEM HCL 125 MG in DEXT 5% WATER 100 ML IV SCH ×2 (16:00→17:51)
[2019-09-02] MEDS ORDERED: DILTIAZEM HCL 125 MG in DEXTROSE 5% WATER 125 ML IV SCH (17:00)
[2019-09-02] MEDS ORDERED: ZOLPIDEM TARTRATE 5MG TABLET PO PRN (17:15)
[2019-09-02] MEDS ORDERED: ACETAMINOPHEN 325MG TABLET PO PRN ×2 (17:15)
[2019-09-02] MEDS ORDERED: ONDANSETRON HCL 4MG/2ML INJ IV PRN (17:15)
[2019-09-02] MEDS ORDERED: IPRATROPIUM/ALBUTEROL 0.5-3(2.5)MG/3ML NEB HHN PRN (17:15)
[2019-09-02] MEDS ORDERED: MAGNESIUM/ALUMINUM HYDROXIDE/SIMETHICONE 30ML UDC PO PRN (17:15)
[2019-09-02] MEDS ORDERED: GUAIFENESIN 200MG/10ML SUGAR FREE UDC PO PRN (17:15)
[2019-09-02] MEDS ORDERED: DIPHENHYDRAMINE 50MG/ML VIAL IV PRN (17:15)
[2019-09-02] MEDS: BLOOD SUGAR DIAGNOSTIC STRIP TEST SCH ×2 (17:20→20:44)
[2019-09-02] MEDS: INSULIN LISPRO 100 UNITS/ML SUBCUT SCH ×2 (17:20→20:44)
[2019-09-02] MEDS ORDERED: DEXTROSE 50% WATER 50ML SYRINGE IV PRN (17:30)
[2019-09-02] MEDS: NICOTINE 21MG PATCH TD NR ×2 (18:37→18:41)
[2019-09-02] MEDS: PANTOPRAZOLE 40MG DR TABLET PO SCH (20:47)
[2019-09-02] MEDS: SODIUM CHLORIDE 0.9% INJ 3ML FLUSH IVF SCH (20:48)
[2019-09-03] VITALS (10 sets, daily range): BP systolic 98–149; BP diastolic 51–97
[2019-09-03] MEDS: PANTOPRAZOLE 40MG DR TABLET PO SCH (06:40)
[2019-09-03] MEDS: DILTIAZEM HCL 60MG TABLET PO SCH ×2 (06:40→15:23)
[2019-09-03] MEDS: BLOOD SUGAR DIAGNOSTIC STRIP TEST SCH ×2 (06:40→11:50)
[2019-09-03] MEDS: INSULIN LISPRO 100 UNITS/ML SUBCUT SCH ×2 (06:41→12:20)
[2019-09-03] MEDS: SODIUM CHLORIDE 0.9% INJ 3ML FLUSH IVF SCH ×2 (06:42→14:00)
[2019-09-03] MEDS: ASPIRIN 81MG TABLET PO SCH (08:36)
[2019-09-03] MEDS: CLOPIDOGREL 75MG TABLET PO SCH (08:36)
[2019-09-03] MEDS ORDERED: DILTIAZEM HCL 125 MG in DEXT 5% WATER 100 ML IV SCH (11:00)
[2019-09-03] MEDS ORDERED: CARVEDILOL 3.125 MG TABLET PO SCH (14:00)
[2019-09-03] MEDS: ENOXAPARIN 100MG/ML SYR SUBCUT SCH (15:27)
[2019-09-04] MEDS ORDERED: ENOXAPARIN 100MG/ML SYR SUBCUT SCH (14:00)
== END 2019-09-03 17:25 | disposition home or self-care (01) | DRG 291 ==
LOC: ER 05:10 → EDBEDREQTM 08:48 → EDBEDREQ 08:48 → EDBEDREQTM 08:55 → EDBEDREQSVC 08:56 → 3WST 11:47 → EDBEDREQTM 11:48 → EDBEDREQSVC 11:48 → ENRESERV 12:28
PROVIDERS: ADMIT Internal Medicine; ATTEND Internal Medicine
PROC: 5A1D70Z Performance of Urinary Filtration, Intermittent, Less than 6 Hours Per Day (ICD-10-PCS; principal; 2019-09-02)
DX: I13.2 Hypertensive heart and chronic kidney disease with heart failure and with stage 5 chronic kidney disease, or end stage renal disease (principal); I50.23 Acute on chronic systolic (congestive) heart failure; N18.6 End stage renal disease; I48.20 Chronic atrial fibrillation, unspecified; E11.21 Type 2 diabetes mellitus with diabetic nephropathy; E11.51 Type 2 diabetes mellitus with diabetic peripheral angiopathy without gangrene; I25.10 Atherosclerotic heart disease of native coronary artery without angina pectoris; E11.319 Type 2 diabetes mellitus with unspecified diabetic retinopathy without macular edema; E11.22 Type 2 diabetes mellitus with diabetic chronic kidney disease; I25.5 Ischemic cardiomyopathy; Z79.899 Other long term (current) drug therapy; Z95.5 Presence of coronary angioplasty implant and graft; Z99.2 Dependence on renal dialysis; Z79.84 Long term (current) use of oral hypoglycemic drugs; Z79.82 Long term (current) use of aspirin; Z88.0 Allergy status to penicillin
CPT/HCPCS: 36415; 36600; 71045; 80053; 82375; 82805; 82962; 83036; 83880; 84484; 85025; 93005; 99285; J0456; J1650; J1815; J3370; J3490; J7030; J7060